=== PATIENT | male | born 1945 | race African-American/Black ===

== ENCOUNTER 2019-02-27 16:09 | Emergency (ER) | payer OTHER ==
[~2019-02-27] VITALS: Ht 167.6 cm; Wt 89.8 kg
[~2019-02-27 16:09] MED LIST: AMBIEN 5 MG TABL5 M1 PO; AMBIEN PO; ANALGESIC325 MG PO; ASPIR-TRIN325 MG PO; Ambien; DIFLUCAN200 MG PO; ERYTHROMYCIN E3.5 G1 OP; FOLIC ACID; FOLIC ACID1 MG PO; HYDROCODON-ACE1 EACH PO; HYDROCODONE-AP1 EAC6 PO; HYTRIN10 MG PO; Hytrin PO; LEXAPRO 10 MG T10 MG PO; METHOTREXATE; MIRALAX17 GM PO; NEURONTIN 300300 M1 PO; NORCO 5-325 TA1 EACH PO; NORVASC 5 MG TAB5 MG PO; NORVASC5 MG PO; NYAMYC15 GM TOP; NYSTATIN 1100000 U/M PO; ORENCIA; ORENCIA125 MG/1 M IM; PREVACID15 MG PO; PROSCAR 5MG TABL5 MG PO; REMICADE 1100 MG/VIA; RHEUMATREX2.5 MG PO; SINEMET 25-1001 EAC1 PO; TERAZOSIN HCL5 MG PO; VALTREX1000 MG PO; ZOLPIDEM TARTRA10 MG PO; [UNRECOGNIZED DRUG - OTHER]
[2019-02-27 17:17] LABS: ABSOLUTE BASOPHILS 0.1 thou/uL (0.0-0.2); ABSOLUTE LYMPHOCYTES 1.7 thou/uL (0.8-5.3); ABSOLUTE MONOCYTES 0.2 thou/uL (0.0-1.2); EOSINOPHILS 0.8 %; HEMATOCRIT 37.3 % (42.0-52.0); HEMOGLOBIN 12.1 gm/dL (14.0-18.0); MCH 32.8 pg (26.0-34.0); MCHC 32.5 g/dL (28.0-37.0); MCV 101.1 fL (80.0-100.0); MONOCYTES 2.8 %; MPV 8.7 fl. (7.2-11.1); NUCLEATED RBCS 0 /100WBC; PLATELET COUNT* 221 thou/uL (150-400); POLYS 67.4 %; RBC 3.69 mil/uL (4.50-6.00); RDW-CV 16.8 % (10.5-14.5)
[2019-02-27 17:24] LABS: URINE BILIRUBIN NEGATIVE (Negative); URINE BLOOD NEGATIVE (Negative); URINE CLARITY CLEAR; URINE COLOR YELLOW; URINE GLUCOSE-RANDOM NEGATIVE (Negative); URINE KETONES NEGATIVE (Negative); URINE LEUKOCYTES-REFLEX NEGATIVE (Negative); URINE NITRITE-REFLEX NEGATIVE (Negative); URINE PROTEIN TRACE (Negative); URINE SPECIFIC GRAVITY 1.025 (1.005-1.030); URINE UROBILINOGEN 0.2 E.U./dl (0.2-1.0)
[2019-02-27 17:25] LABS: CALCIUM 8.5 mg/dL (8.5-10.1); CREATININE 1.8 mg/dL (0.6-1.3); POTASSIUM 3.9 mmol/L (3.5-5.1)
[2019-02-27 17:30] LABS: ALBUMIN 3.2 g/dL (3.4-5.0); TOTAL BILIRUBIN 0.2 mg/dL (<0.1-1.0)
[2019-02-27 19:15] VITALS: BP 126/87
--- NOTE | 2019-03-02 14:42 | EKG ---
[place] [address] ELECTROCARDIOGRAM REPORT Name: MARK DOOLEY JR [id number] Admission: 02/27/19 Attend Phys: Discharge: 02/27/19 Date of : 41 Report #: [id number] THIS REPORT FOR: //name// [facility] ED Test Date: 2019-02-27 Test Time: 16:18:07 Pat Name: MARK DOOLEY Department: Room: Gender: M Assistant Coach: PIETER : 1945 Requested By: Rocco Villanueva Order Number: [id number] Nargis MD: Lee Queen Measurements Intervals [place] Rate: 82 P: 35 DC: 171 QRS: -49 QRSD: 139 T: 16 QT: 398 QTc: 465 Interpretive Statements Sinus rhythm RBBB and LAFB Compared to ECG 08/12/2016 16:14:39 no change Electronically Signed On 03-02-2019 14:41:57 CDT by Lee Queen [email or web address] <ELECTRONICALLY SIGNED> By: Lee Queen MD, [facility] 03/02/19 1441 1618 17 Lee Queen MD, FACC /EPI
== END 2019-02-27 19:15 | disposition home or self-care (01) ==
LOC: M.ERS 16:09
PROVIDERS: Nurse Practitioner Family
DX: R53.1 Weakness (principal); K21.9 Gastro-esophageal reflux disease without esophagitis; I12.9 Hypertensive chronic kidney disease with stage 1 through stage 4 chronic kidney disease, or unspecified chronic kidney disease; N18.3 Chronic kidney disease, stage 3 (moderate); Z86.73 Personal history of transient ischemic attack (TIA), and cerebral infarction without residual deficits; Z88.5 Allergy status to narcotic agent

== ENCOUNTER 2020-04-06 12:17 | Emergency (ER) | payer MEDICARE ==
[~2020-04-06] VITALS: Ht 167.6 cm; Wt 94.3 kg
[2020-04-06 12:58] LABS: ABSOLUTE BASOPHILS 0.1 thou/uL (0.0-0.2); ABSOLUTE LYMPHOCYTES 1.2 thou/uL (0.8-5.3); ABSOLUTE MONOCYTES 0.7 thou/uL (0.0-1.2); ABSOLUTE NEUTROPHILS 7.7 thou/uL (1.6-8.1); BASOPHILS 0.8 %; EOSINOPHILS 0.1 %; HEMATOCRIT 40.4 % (42.0-52.0); HEMOGLOBIN 13.5 gm/dL (14.0-18.0); LYMPHOCYTES 12.5 %; MCH 31.8 pg (26.0-34.0); MCHC 33.5 g/dL (28.0-37.0); MCV 94.8 fL (80.0-100.0); MONOCYTES 6.7 %; NUCLEATED RBCS 0 /100WBC; PLATELET COUNT* 206 thou/uL (150-400); POLYS 79.9 %; RBC 4.26 mil/uL (4.50-6.00); RDW-CV 15.5 % (10.5-14.5); WBC 9.7 thou/uL (4.0-11.0)
[2020-04-06 13:10] LABS: CALCIUM 8.8 mg/dL (8.5-10.1); CREATININE 1.9 mg/dL (0.6-1.3); POTASSIUM 3.6 mmol/L (3.5-5.1)
[2020-04-06 13:14] LABS: ALBUMIN 3.8 g/dL (3.4-5.0); TOTAL BILIRUBIN 0.4 mg/dL (<0.1-1.0); TOTAL PROTEIN 8.2 g/dL (6.4-8.2)
[2020-04-06 13:56] LABS: URINE BILIRUBIN NEGATIVE (Negative); URINE BLOOD TRACE (Negative); URINE CLARITY CLEAR; URINE COLOR YELLOW; URINE GLUCOSE-RANDOM NEGATIVE (Negative); URINE KETONES NEGATIVE (Negative); URINE LEUKOCYTES-REFLEX NEGATIVE (Negative); URINE NITRITE-REFLEX NEGATIVE (Negative); URINE PROTEIN TRACE (Negative); URINE SPECIFIC GRAVITY 1.025 (1.005-1.030); URINE UROBILINOGEN 0.2 E.U./dl (0.2-1.0)
[2020-04-06] MEDS ORDERED: GENTLE LAXATIVE5 MG PO (14:03)
[2020-04-06] MEDS ORDERED: BENTYL 20 MG TA20 M1 PO (14:03)
[2020-04-06 14:24] VITALS: BP 164/76
--- NOTE | 2020-04-06 17:14 | EKG ---
[place] [address] ELECTROCARDIOGRAM REPORT Name: MARK DOOLEY JR Room: [facility]#: [id number] Admission: 04/06/20 Attend Phys: Discharge: 04/06/20 Date of : 41 Date of Service: 04/06/20 1226 Report #: [id number] THIS REPORT FOR: //name// [facility] ED Test Date: 2020-04-06 Test Time: 12:26:44 Pat Name: MARK DOOLEY Department: Room: Gender: Glove Former: CARLOS : 1945 Requested By: Johny Greene Order Number: [id number] MD: Izaiah Lindsay Measurements Intervals [place] Rate: 98 P: 40 AR: 187 QRS: -82 QRSD: 123 T: 21 QT: 365 QTc: 467 Interpretive Statements Sinus rhythm Multiple ventricular premature complexes Probable left atrial enlargement Right bundle branch block Inferior infarct, old Lateral leads are also involved Baseline wander in lead(s) V3 Compared to ECG 02/27/2019 16:18:07 Ventricular premature complex(es) now present Myocardial infarct finding now present Electronically Signed On 04-06-2020 17:14:23 CDT by Izaiah Lindsay [email or web address] <ELECTRONICALLY SIGNED> By: Izaiah Lindsay MD, [facility] 04/06/20 1714 1226 1226 Izaiah Lindsay MD, [facility] /EPI
== END 2020-04-06 14:26 | disposition home or self-care (01) ==
LOC: M.ERS 12:17
PROVIDERS: Emergency Medicine Emergency Medical Services
DX: R10.10 Upper abdominal pain, unspecified (principal); K21.9 Gastro-esophageal reflux disease without esophagitis; I12.9 Hypertensive chronic kidney disease with stage 1 through stage 4 chronic kidney disease, or unspecified chronic kidney disease; N18.3 Chronic kidney disease, stage 3 (moderate); Z86.73 Personal history of transient ischemic attack (TIA), and cerebral infarction without residual deficits; Z79.899 Other long term (current) drug therapy; Z88.6 Allergy status to analgesic agent